=== PATIENT | female | born 1950 | race Caucasian/White ===

== ENCOUNTER → 2017-05-10 | Outpatient (CLI) | payer MEDICARE, OTHER | LOC: LAB 13:59 | PROVIDERS: ATTEND Family Medicine | DX: R19.7 Diarrhea, unspecified (principal) ==

== ENCOUNTER → 2017-06-21 | Outpatient (CLI) | payer MEDICARE, OTHER ==
--- NOTE | 2017-06-26 16:39 | MAM ---
EXAM DESCRIPTION: 3D Screening BILATERAL CLINICAL HISTORY: 66 yearsFemaleSCREENING. Hysterectomy. HRT, five or more years ago.. COMPARISON: Digital 2-D screening bilateral study 06/20/2016. Report from prior examination also reviewed. TECHNIQUE: Bilateral CC and MLO projection full-field images, 3-D tomosynthesis digital mammographic technique. Also bilateral synthesized CC/ MLO full-field images. CAD not utilized. FINDINGS: The breast parenchymal density pattern is: Scattered areas of fibroglandular density. No skin thickening or nipple retraction mass density with well-circumscribed borders containing calcifications in the middle third of the central left breast is stable and consistent with degenerating fibroadenoma. Bilateral solitary microcalcifications. No focal, stellate mass or density, focal asymmetry , and no suspicious microcalcifications bilaterally. Stable mammograms compared to prior study, taking into account differences in mammographic technique IMPRESSION: BI-RADS CATEGORY: 2 - BENIGN FINDINGS. FOLLOW UP: Routine digital bilateral screening, one year interval from May 2017. Written communication explaining the findings and follow-up, will be mailed to the patient and referring health care provider. According to the [employer], yearly mammograms are recommended starting at age 40 and continuing as long as a woman is in good health. Any breast change noted on a breast self-exam should be reported promptly to the patient's healthcare provider. Breast MRI is recommended for women with an approximately 20-25% or greater lifetime risk of breast cancer, including women with a strong family history of breast or ovarian cancer and women who have been treated for Hodgkin's disease. A negative mammographic report should not delay tissue diagnosis in patients with significant clinical history or physical findings. Extremely dense breast tissue limits the sensitivity of digital mammography. Electronically signed by: Jake Rubi MD 06/26/2017 4:37 PM CDT Workstation: [id number]
== END ==
LOC: MAMMO 06-21 11:00
PROVIDERS: ATTEND Internal Medicine Hematology & Oncology
DX: Z12.31 Encounter for screening mammogram for malignant neoplasm of breast (principal)
CPT/HCPCS: G0202; G0279

== ENCOUNTER 2017-09-10 10:31 | Emergency (ER) | payer MEDICARE, OTHER ==
--- NOTE | 2017-09-10 11:19 | RAD ---
EXAM DESCRIPTION: Clavicle,Right CLINICAL HISTORY: 66 years Female, fall out of bed, pain over distal clavicle ac join COMPARISON: None. FINDINGS: Two-view right clavicle demonstrates acute transverse fracture of the distal clavicle about 2 cm from the lateral margin of the clavicle. There is no significant displacement angulation. There is no bone lesion. Note is made of a high riding humerus indicating distinct possibility of rotator cuff pathology. IMPRESSION: Acute clavicle fracture without displacement High riding humerus Electronically signed by: Javon Gaston MD 09/10/2017 11:18 AM CDT
--- NOTE | 2017-09-10 11:31 | ED.PDOC ---
History of Present Illness - General Chief Complaint: Upper Extremity Injury Stated Complaint: Fell last night and injured R Shoulder Time Seen by Provider: 09/10/17 10:39 Source: patient Exam Limitations: no limitations - History of Present Illness Initial Comments: the patient is a 66-year-old female accidentally fell out of bed last night and landed on her right shoulder. She does have some bruising just superior to the distal clavicle on the right. She has pain with movement primarily active movement of the shoulder. Passive range of motion seems to cause a little discomfort. She does have tenderness over the distal clavicle with some mild swelling. She appears to be neurovascularly intact in the right upper extremity. Timing/Duration: momentarily Severity: moderate Improving Factors: immobilization Worsening Factors: movement Associated Symptoms: denies symptoms Allergies/Adverse Reactions: Allergies NO KNOWN ALLERGY Allergy (Verified 11/18/16 10:25) Home Medications: Ambulatory Orders Atorvastatin Calcium [Lipitor] 10 mg PO DAILY 06/30/16 Cephalexin Monohydrate [Keflex] 500 mg PO Q8H #30 cap 06/30/16 Famotidine 20 mg PO DAILY #30 tab 06/30/16 Hydrochlorothiazide 25 mg PO DAILY 06/30/16 Interferon Beta-1A [Avonex Pen] 30 mcg IM DAILY 06/30/16 Pantoprazole Sodium 40 mg PO DAILY 06/30/16 Pregabalin [Lyrica] 50 mg PO DAILY 06/30/16 Rizatriptan Benzoate [Rizatriptan Benzoate Odt] 10 mg PO PRN 06/30/16 Valsartan 320 mg PO DAILY 06/30/16 Venlafaxine HCl [Venlafaxine HCl ER] 150 mg PO DAILY 06/30/16 Verapamil HCl [Verapamil HCl ER] 240 mg PO DAILY 06/30/16 e-Rirjwnauhmxh-Kwvtpkoezlpimbi [Cerefolin Nac 6-2-600 mg] 1 tab PO DAILY Albuterol Inhaler [Ventolin Hfa Inhaler] 1 puff INH Q4HR PRN #1 inh 11/18/16 Amoxicillin 875 mg PO BID #14 tab 11/18/16 Prednisone [Deltasone] 20 mg PO DAILY #5 tab 11/18/16 Goviysuuufnge-Iaiw-Tpklppzdfm [Fioricet] 1 ea PO Q8H PRN #21 tab 09/10/17 Review of Systems - Review of Systems Review of Systems: 09/10/17 11:30 review of systems is for new symptoms. All chronic symptoms are not covered. Constitutional: States: no symptoms reported EENTM: States: no symptoms reported Respiratory: States: no symptoms reported Cardiology: States: no symptoms reported Gastrointestinal/Abdominal: States: no symptoms reported Genitourinary: States: no symptoms reported Musculoskeletal: States: see HPI Skin: States: see HPI Neurological: States: no symptoms reported Endocrine: States: no symptoms reported All other Systems: No Change from Baseline Past Medical History (General) - Patient Medical History Hx Seizures: No Hx Stroke: No Hx Dementia: No Hx Asthma: No Hx of COPD: No Hx Cardiac Disorders: No Hx Congestive Heart Failure: No Hx Pacemaker: No Hx Hypertension: Yes Hx Thyroid Disease: No Hx Diabetes: No Hx Gastroesophageal Reflux: Yes Hx Renal Disease: No Hx Cancer: No Hx Hepatitis C: No - Vaccination History Hx Tetanus, Diphtheria Vaccination: No Hx Influenza Vaccination: No Hx Pneumococcal Vaccination: No - Social History Hx Tobacco Use: Yes Hx Chewing Tobacco Use: No Hx Alcohol Use: No Hx Substance Use: No Hx Substance Use Treatment: No Hx Depression: No Hx Physical Abuse: No Hx Emotional Abuse: No Hx Suspected Abuse: No - Female History Patient : No Family Medical History - Family History Mother Family History: Unknown Living Status: Physical Exam - Physical Exam General Appearance: Alert, No apparent distress Eye Exam: bilateral normal Ears, Nose, Throat: hearing grossly normal, normal ENT inspection, normal pharynx Neck: full range of motion, supple Respiratory: no respiratory distress, no accessory muscle use Cardiovascular/Chest: normal peripheral pulses, no edema Peripheral Pulses: radial,right: 2+, radial,left: 2+ Rectal Exam: deferred Extremity: normal range of motion - normal passive range of motion. Active range of motion of the right shoulder causes pain in the shoulder., no pedal edema, normal capillary refill, other - bruising is noted superior to the right shoulder. There is tenderness to palpation over the distal clavicle. She moves the elbowand wrist and hand well. Neurologic: doweler II-XII nml as tested, alert, normal mood/affect, oriented x 3 Skin Exam: normal color - except bruising as above Comments: he patient has a mild abrasion to her right lower back in a very mild abrasion to her forehead as well from the fall last night. Progress - Progress Progress: 09/10/17 11:32 the patient is a 66-year-old female but appears to have a distal third clavicle fracture that is nondisplaced on the right. There is made note of a mildly high riding humerus indicating the possibility at least of a rotator cuff injury as well. The patient is being placed in a shoulder immobilizer where she needs to remain for at least the next 2 weeks. I would recommend that she follow-up with orthopedics between 10 days in 2 weeks from now for a repeat evaluation to see if they do believe there is an underlying rotator cuff injury as well. She should do range of motion exercises of course of the hand and wrist and elbow. ER warnings were given for any significant worsening. Ambulate carefully. Departure - Departure Clinical Impression: Clavicle fracture Qualifiers: Encounter type: initial encounter Clavicle location: lateral end Fracture type : closed Fracture alignment: nondisplaced Laterality: right Qualified Code(s): S42.034A - Nondisplaced fracture of lateral end of right clavicle, initial encounter for closed fracture Disposition: Discharge to Home or Self Care Condition: Fair Departure Forms: ED Discharge - Pt. Copy, Patient Portal Self Enrollment Instructions: DI for Clavicle Fracture-Adult Diet: regular diet Activity: no pushing/pulling with affected limb Referrals: KING EPSTEIN [Primary Care Provider] - 1-2 Weeks Prescriptions: Vdcazipicwvyy-Cees-Dclvbhpoxi [Fioricet] 1 ea PO Q8H PRN #21 tab PRN Reason: Pain Home Medications: Ambulatory Orders Atorvastatin Calcium [Lipitor] 10 mg PO DAILY 06/30/16 Cephalexin Monohydrate [Keflex] 500 mg PO Q8H #30 cap 06/30/16 Famotidine 20 mg PO DAILY #30 tab 06/30/16 Hydrochlorothiazide 25 mg PO DAILY 06/30/16 Interferon Beta-1A [Avonex Pen] 30 mcg IM DAILY 06/30/16 Pantoprazole Sodium 40 mg PO DAILY 06/30/16 Pregabalin [Lyrica] 50 mg PO DAILY 06/30/16 Rizatriptan Benzoate [Rizatriptan Benzoate Odt] 10 mg PO PRN 06/30/16 Valsartan 320 mg PO DAILY 06/30/16 Venlafaxine HCl [Venlafaxine HCl ER] 150 mg PO DAILY 06/30/16 Verapamil HCl [Verapamil HCl ER] 240 mg PO DAILY 06/30/16 v-Icgitjdkextp-Tsdxlwyfaxjbtuh [Cerefolin Nac 6-2-600 mg] 1 tab PO DAILY Albuterol Inhaler [Ventolin Hfa Inhaler] 1 puff INH Q4HR PRN #1 inh 11/18/16 Amoxicillin 875 mg PO BID #14 tab 11/18/16 Prednisone [Deltasone] 20 mg PO DAILY #5 tab 11/18/16 Hgeyqyetwbhkb-Afee-Kvzhsfdbvt [Fioricet] 1 ea PO Q8H PRN #21 tab 09/10/17 Additional Instructions: the patient is a 66-year-old female but appears to have a distal third clavicle fracture that is nondisplaced on the right. There is made note of a mildly high riding humerus indicating the possibility at least of a rotator cuff injury as well. The patient is being placed in a shoulder immobilizer where she needs to remain for at least the next 2 weeks. I would recommend that she follow-up with orthopedics between 10 days in 2 weeks from now for a repeat evaluation to see if they do believe there is an underlying rotator cuff injury as well. She should do range of motion exercises of course of the hand and wrist and elbow. ER warnings were given for any significant worsening. Ambulate carefully.
[2017-09-10 12:10] VITALS: BP 123/81; TEMP 98.2; O2SAT 94
== END 2017-09-10 11:50 | disposition home or self-care (01) ==
LOC: ER 10:31
DX: S42.034A Nondisplaced fracture of lateral end of right clavicle, initial encounter for closed fracture (principal); S30.810A Abrasion of lower back and pelvis, initial encounter; S00.81XA Abrasion of other part of head, initial encounter; I10 Essential (primary) hypertension; Z87.891 Personal history of nicotine dependence; Z79.899 Other long term (current) drug therapy; W06.XXXA Fall from bed, initial encounter; Y92.89 Other specified places as the place of occurrence of the external cause

== ENCOUNTER → 2017-10-12 | Outpatient (CLI) | payer MEDICARE, OTHER ==
--- NOTE | 2017-10-14 09:32 | RAD ---
EXAM DESCRIPTION: Clavicle, right CLINICAL HISTORY: 67 years, Female, PAIN IN RIGHT SHOULDER COMPARISON: FINDINGS: Vertical fracture distal clavicle, about 2 cm medial to the acromioclavicular joint. Minimal distraction and superior subluxation. IMPRESSION: Vertical fracture distal clavicle. Electronically signed by: Merlin Burrell MD 10/14/2017 9:31 AM [facility]
== END | disposition home or self-care (01) ==
LOC: RAD 08:04
PROVIDERS: ATTEND Orthopaedic Surgery
DX: M25.511 Pain in right shoulder (principal)

== ENCOUNTER → 2017-11-12 | Outpatient (CLI) | payer MEDICARE, OTHER ==
--- NOTE | 2017-11-12 16:26 | RAD ---
EXAM DESCRIPTION: Clavicle,Right CLINICAL HISTORY: 67 years Female, FX COMPARISON: October 12, 2017 FINDINGS: Fracture of the distal right clavicle approximately 2.5 cm proximal to the intact AC joint is noted. Significant healing or bridging callus formation is not apparent. Alignment remains anatomic. There may be minimal callus formation along the inferior aspect of the fracture on the oblique view obtained. IMPRESSION: Stable anatomic alignment of distal clavicular fracture with very little healing noted. Electronically signed by: Ector Victoria MD 11/12/2017 4:25 PM [facility]
== END | disposition home or self-care (01) ==
LOC: RAD 09:13
PROVIDERS: ATTEND Orthopaedic Surgery
DX: S42.001D Fracture of unspecified part of right clavicle, subsequent encounter for fracture with routine healing (principal)

== ENCOUNTER → 2018-06-24 | Outpatient (CLI) | payer MEDICARE, OTHER ==
--- NOTE | 2018-06-25 09:26 | MAM ---
EXAM DESCRIPTION: 3D Screening BILATERAL : Digital Mammography. CLINICAL HISTORY: 67 years Female SCREENING . No complaints. No family history of breast cancer. No childbirth. HRT 5 or more years ago. COMPARISON: Digital screening bilateral study 06/21/2017. Reports from prior examinations also reviewed. TECHNIQUE: Bilateral CC and MLO projection full-field images, 3-D tomosynthesis digital mammographic technique. CAD not utilized. FINDINGS: The breast parenchymal density pattern is: Scattered areas of fibroglandular density. No skin thickening or nipple retraction. Bilateral axillary lymph nodes. Well-defined soft tissue mass with coarse calcifications noted third left breast is stable. Consistent with a degenerating fibroadenoma. No new focal, stellate mass or density, focal asymmetry , and no suspicious microcalcifications bilaterally. Stable mammograms compared to prior study, taking into account differences in mammographic technique. IMPRESSION: BI-RADS CATEGORY: 2 - BENIGN FINDINGS. FOLLOW UP: Routine digital bilateral screening, one year interval from May 2019. Written communication explaining the IMPRESSION and follow-up, will be mailed to the patient and referring health care provider. According to the [employer], yearly mammograms are recommended starting at age 40 and continuing as long as a woman is in good health. Any breast change noted on a breast self-exam should be reported promptly to the patient's healthcare provider. Breast MRI is recommended for women with an approximately 20-25% or greater lifetime risk of breast cancer, including women with a strong family history of breast or ovarian cancer and women who have been treated for Hodgkin's disease. A negative mammographic report should not delay tissue diagnosis in patients with significant clinical history or physical findings. Extremely dense breast tissue limits the sensitivity of digital mammography. Electronically signed by: Jake Rubi MD 06/25/2018 9:25 AM CDT
== END ==
LOC: MAMMO 11:15
PROVIDERS: ATTEND Internal Medicine Hematology & Oncology
DX: Z12.31 Encounter for screening mammogram for malignant neoplasm of breast (principal)

== ENCOUNTER 2019-07-07 05:46 | Day surgery (SDC) | payer MEDICARE, OTHER ==
[2019-07-07] MEDS ORDERED: MOXIFLOXACIN HCL (OPHTH) 1 DROP DROPS ONE (08:43)
[2019-07-07] MEDS ORDERED: TROP 1%/CYCLOPEN 1%/PHENYL 2% DROPS ONE (08:43)
[2019-07-07] MEDS ORDERED: PROPARACAINE 0.5% OPHTH SOL 15 ML BTTL ONE (08:43)
[2019-07-07] MEDS ORDERED: MIDAZOLAM INJ 2 MG/2 ML VIAL ONE (10:11)
[2019-07-07] MEDS ORDERED: LIDOCAINE 1% MPF 2 ML VIAL INJ ONE (10:21)
[2019-07-07] MEDS ORDERED: TOBRAMYCIN SULF 0.3 % OPHTH OINT 1 APPLIC LEFT_EYE ONE (10:21)
[2019-07-07] MEDS ORDERED: DEXAMETHASONE 0.1% OPHTH SOL 1 DROP LEFT_EYE ONE ×2 (10:21→10:29)
[2019-07-07] MEDS ORDERED: BRIMONIDINE 0.2% OPHTH DROPS LEFT_EYE ONE ×2 (10:22→10:29)
[2019-07-07] MEDS ORDERED: TOBRAMYCIN SULF 0.3 % OPHT SOL 1 DROP LEFT_EYE ONE (10:29)
[2019-07-07] MEDS ORDERED: MOXIFLOXACIN HCL (OPHTH) 1 DROP DROPS LEFT_EYE ONE (10:29)
== END 2019-07-07 11:05 | disposition home or self-care (01) ==
LOC: AMB 05:46
PROVIDERS: ATTEND Ophthalmology
DX: H25.12 Age-related nuclear cataract, left eye (principal); I10 Essential (primary) hypertension; Z79.899 Other long term (current) drug therapy
CPT/HCPCS: 00142; 66984; J2250

== ENCOUNTER 2019-07-21 05:31 | Day surgery (SDC) | payer MEDICARE, OTHER ==
[2019-07-21] MEDS ORDERED: TROP 1%/CYCLOPEN 1%/PHENYL 2% DROPS ONE (05:58)
[2019-07-21] MEDS ORDERED: PROPARACAINE 0.5% OPHTH SOL 15 ML BTTL ONE (05:58)
[2019-07-21] MEDS ORDERED: MIDAZOLAM INJ 2 MG/2 ML VIAL ONE ×2 (07:09→09:04)
[2019-07-21] MEDS: PROPARACAINE 0.5% OPHTH SOL 15 ML BTTL RIGHT_EYE ONE (08:51)
[2019-07-21] MEDS: LIDOCAINE 1% MPF 2 ML VIAL INJ ONE (08:58)
[2019-07-21] MEDS: MOXIFLOXACIN HCL (OPHTH) 1 DROP DROPS RIGHT_EYE ONE ×2 (08:58→09:07)
[2019-07-21] MEDS: DEXAMETHASONE 0.1% OPHTH SOL 1 DROP RIGHT_EYE ONE ×2 (08:58→09:07)
[2019-07-21] MEDS: BRIMONIDINE 0.2% OPHTH DROPS RIGHT_EYE ONE ×2 (08:59→09:07)
[2019-07-21] MEDS: TOBRAMYCIN SULF 0.3 % OPHT SOL 1 DROP RIGHT_EYE ONE ×2 (08:59→09:07)
== END 2019-07-21 09:46 | disposition home or self-care (01) ==
LOC: AMB 05:31
PROVIDERS: ATTEND Ophthalmology
DX: H25.11 Age-related nuclear cataract, right eye (principal); I10 Essential (primary) hypertension
CPT/HCPCS: 00142; 66984; J2250

== ENCOUNTER → 2019-08-07 | Outpatient (CLI) | payer MEDICARE, OTHER ==
--- NOTE | 2019-08-11 09:43 | MAM ---
EXAM DESCRIPTION: 3D Screening BILATERAL : Digital Mammography. CLINICAL HISTORY: 68 years Female ANNUAL SCREENING . No complaints. No personal or family history of breast cancer. No childbirth. Hysterectomy. Has taken HRT. Previous cyst aspiration in benign biopsy right breast. Lifetime risk of developing breast cancer (Tyrer-Cuzick model)(%): 8.1. COMPARISON: Bilateral screening digital breast tomosynthesis 06/24/2018.. TECHNIQUE: Bilateral CC and MLO projection full-field images, digital tomosynthesis mammographic technique. Bilateral digital 2-D full-field MLO images. CAD not available for tomosynthesis or 2-D images. FINDINGS: The breast parenchymal density pattern is: Scattered areas of fibroglandular density. No skin thickening or nipple retraction. Stable degenerating fibroadenoma. Central coarse calcifications left breast. Bilateral solitary microcalcifications. No new focal, stellate mass or density, focal asymmetry , and no suspicious microcalcifications bilaterally. Stable mammograms compared to prior study. IMPRESSION: Benign exam. BIRAD CATEGORY: 2 BENIGN FINDINGS. RECOMMENDATIONS: FOLLOW UP: Routine digital bilateral mammographic screening, one year interval from July 2019. Written communication explaining the IMPRESSION and follow-up, will be mailed to the patient and referring health care provider. According to the [employer], yearly mammograms are recommended starting at age 40 and continuing as long as a woman is in good health. Any breast change noted on a breast self-exam should be reported promptly to the patient's healthcare provider. Breast MRI is recommended for women with an approximately 20-25% or greater lifetime risk of breast cancer, including women with a strong family history of breast or ovarian cancer and women who have been treated for Hodgkin's disease. A negative mammographic report should not delay tissue diagnosis in patients with significant clinical history or physical findings. Extremely dense breast tissue limits the sensitivity of digital mammography. Electronically signed by: Jake Rubi MD 08/11/2019 9:41 AM CDT
== END ==
LOC: MAMMO 10:02
PROVIDERS: ATTEND Internal Medicine Hematology & Oncology
DX: Z12.31 Encounter for screening mammogram for malignant neoplasm of breast (principal)

== ENCOUNTER → 2019-10-30 | Outpatient (CLI) | payer MEDICARE ==
--- NOTE | 2019-10-31 08:27 | RAD ---
EXAM DESCRIPTION: Chest,2 Views CLINICAL HISTORY: 69 years Female, Nicotine dependence COMPARISON: 18 November 2016 TECHNIQUE: PA/lateral FINDINGS: There is no cardiac or pulmonary abnormality. The lungs are clear. There is no effusion. IMPRESSION: 1. Normal two-view chest. Electronically signed by: Alexy Lopez MD 10/31/2019 8:[address] [facility]
== END ==
LOC: RAD 14:10
PROVIDERS: ATTEND Family Medicine
DX: F17.200 Nicotine dependence, unspecified, uncomplicated (principal)